=== PATIENT | male | born 1980 ===

== ENCOUNTER 2021-06-28 04:03 | Emergency (ER) | payer BC ==
[2021-06-28] MEDS: methylPREDNISolone Sodium Succinate 125 MG/2 ML SDV IM ONE (05:12)
[2021-06-28] MEDS: Albuterol/Ipratropium 3.0-0.5 MG/3 ML Neb Soln NEB ONE (05:13)
[2021-06-28] MEDS: methylPREDNISolone Sodium Succinate 125 MG/2 ML SDV ONE (05:15)
== END 2021-06-28 05:40 | disposition home or self-care (01) ==
LOC: LB.ED 04:03
DX: J02.9 Acute pharyngitis, unspecified (principal)
CPT/HCPCS: 87430; 94640; 96372; 99283; 99284; J2930; J7620